=== PATIENT | female | born 1975 | race Caucasian/White ===

== ENCOUNTER 2022-04-05 18:46 | Emergency (ER) | payer OTHER, SELFPAY ==
--- NOTE | ~2022-04-05 | CT_ITS ---
EXAMINATION: CTA chest PE protocol DATE: 04/06/2022 02:35 INDICATION: Shortness of breath. Tachycardia. Recent COVID. Positive d-dimer. TECHNIQUE: Computed tomography (CT) pulmonary angiogram of the chest was performed with 100 mL Omnipa que-350 intravenous contrast. Additional 3D reconstructions utilizing coronal maximum intensity proje ction (MIP) were performed. Automated exposure control and iterative reconstruction technique were em ployed. The dose-length product was 249.28 mGy-cm. COMPARISON: None FINDINGS: Excellent contrast opacification of the pulmonary arteries. There is mild streak artifact from dense contrast in the superior vena cava and right atrium. Mild scattered respiratory motion artifact which does not significantly limit evaluation. No pulmonary embolism. No pneumonia, pulmonary edema, pleur al effusion or pneumothorax. 5 x 7 mm right middle lobe nodule. There are few scattered bilateral sma ll calcified pulmonary nodules consistent with old granulomatous disease. Heart size is normal. No pe ricardial or pleural effusion. No pathologically enlarged thoracic lymphadenopathy. Mild thoracic spo ndylosis. Chronic mild anterior wedging at T8. IMPRESSION: 1. No pulmonary embolism or other acute cardiopulmonary disease. 2. 6 mm right middle lobe nodule for which 6-12 month follow-up low-dose noncontrast chest CT would b e recommended. Reviewed, dictated and finalized at location [facility] IMPRESSION: 1. No pulmonary embolism or other acute cardiopulmonary disease. 2. 6 mm right middle lobe nodule for which 6-12 month follow-up low-dose noncon trast chest CT would be recommended.
--- NOTE | ~2022-04-05 | XR_ITS ---
EXAMINATION: XR chest 2V DATE: 04/05/2022 21:06 INDICATION: Cough. Chest tightness. TECHNIQUE: PA and lateral views of the chest were obtained. COMPARISON: None FINDINGS: The lungs are clear with no focal airspace opacities, pulmonary edema, pleural effusion or pneumothor ax. The cardiomediastinal silhouette is normal. Mild thoracic spondylosis with mild anterior wedging of a couple mid thoracic vertebral bodies. IMPRESSION: 1. No acute cardiopulmonary disease. Reviewed, dictated and finalized at location [facility]. [facility]
[2022-04-05 19:00] VITALS: BP 138/81; PULSE 97; RESP 17; TEMP 37.1; O2SAT 98
[2022-04-05 21:29] LABS: Influenza A QL RT-PCR Negative (Negative); Influenza B QL RT-PCR Negative (Negative); RSV RNA, RT-PCR Negative (Negative); SARS-CoV-2 RNA PCR Negative
[2022-04-06 00:04] VITALS: PULSE 118; RESP 29; O2SAT 95
[2022-04-06 00:05] VITALS: BP 131/87; PULSE 100; RESP 21; O2SAT 94
--- NOTE | 2022-04-06 00:13 | ED.URI ---
HPI - URI/Sore Throat General Stated Complaint: SOB Time Seen by Provider: 04/05/22 23:51 Source: patient Mode of arrival: ambulatory Limitations: no limitations History of Present Illness HPI Narrative: Patient is a 46-year-old female who presents the ED with report of shortness of breath. Patient reports she was diagnosed with COVID-19 2 weeks ago. She had 1 day of cough and fever but otherwise felt fine. Yesterday she developed some upper respiratory symptoms, cough, congestion, runny nose, sneezing. Today she developed shortness of breath and wheezing. She has had difficulty catching her breath. Patient has history of asthma as a child, no issues as an adult. She denies any fevers, chest pain, nausea, vomiting, pleuritic pain. Related Data Allergies Allergy/AdvReac Type Severity Reaction Status Date / Time codeine Allergy Rash Verified 04/06/22 00:33 morphine Allergy Rash Verified 04/06/22 00:33 tramadol Allergy Rash Verified 04/06/22 00:33 Review of Systems Review of Systems: CONSTITUTIONAL: Denies fever, chills, or sweats. ENT: Reports rhinorrhea, congestion, sneezing. CARDIOVASCULAR: Denies chest pain. RESPIRATORY: Reports cough, wheezing, dyspnea. Denies pleuritic pain. GASTROINTESTINAL: Denies abdominal pain, nausea, vomiting, or diarrhea. MUSCULOSKELETAL: Denies back pain, joint pain, or myalgia. NEUROLOGIC: Denies headache, numbness, or weakness. All systems reviewed & are unremarkable except as noted in HPI and below PMFSH Past Medical History Medical History (Updated 04/06/22 @ 03:59 by Dalia Montelongo PA-C) Systemic lupus erythematosus Surgical History Surgical History (Updated 04/06/22 @ 00:20 by Dalia Montelongo PA-C) History of appendectomy History of section History of hysterectomy Social History Social History (Updated 04/06/22 @ 00:20 by Dalia Montelongo PA-C) Smoking status: Never smoker Exam Narrative: GENERAL: Well appearing, obese, non-toxic, in mild acute distress. HEAD: Normocephalic, atraumatic. NECK: Supple. No adenopathy, no masses. RESPIRATORY: Airway patent, respirations mildly tachypneic. Diffuse expiratory wheezing in bilateral lung lockhart. No focal lung sounds. Audible wheezing. CARDIOVASCULAR: Tachycardic with regular rhythm without murmurs, rubs, or gallops. Radial pulses 2+ and equal bilaterally. ABDOMINAL: Soft, nontender, nondistended, no hepatosplenomegaly. Normoactive BS. MUSCULOSKELETAL: Moves all extremities. Strength/ROM intact without gross deformities. SKIN: Warm, dry, normal color. No rashes. NEURO: A&O X3. Speech clear. Cranial nerves II-XII grossly intact. Steady gait. No ataxic movements. PSYCHIATRIC: Appropriate mood and affect. Normal interaction. Course Vital Signs Vital signs: Vital Signs Temperature 98.8 F 04/05/22 19:00 Pulse Rate 97 04/05/22 19:00 Respiratory Rate 17 04/05/22 19:00 Blood Pressure 138/81 04/05/22 19:00 Pulse Oximetry 98 04/05/22 19:00 Oxygen Delivery Room Air 04/05/22 19:00 Temperature 98.8 F 04/05/22 19:00 Pulse Rate 96 04/06/22 00:36 Respiratory Rate 24 H 04/06/22 00:36 Blood Pressure 130/87 04/06/22 00:15 Pulse Oximetry 96 04/06/22 00:16 Oxygen Delivery Room Air 04/06/22 00:19 MDM - URI/Sore Throat MDM Narrative Medical decision making narrative: Patient presented to ED with 2-day history of URI symptoms, SOB. Patient tachycardic and tachypneic with audible wheezing upon my evaluation. Vitals otherwise stable. Afebrile. Oxygenation 96-99% on room air. EKG with nonspecific ST changes, no ST elevation. Troponin negative. Patient denying CP. D-dimer mildly elevated. Chest x-ray without acute findings, no focal consolidation. CTA obtained and negative for PE. Did show small lung nodule, which I made patient aware of will need further outpatient imaging in the future. Influenza, RSV, COVID-negative. Patient given steroids and hour-long nebuli
[2022-04-06 00:15] VITALS: BP 130/87; PULSE 109; RESP 24; O2SAT 95
[2022-04-06 00:16] VITALS: PULSE 108; RESP 25; O2SAT 96
--- NOTE | 2022-04-06 00:19 | ECG_ITS ---
Measurements Intervals [place] Rate: 113 P: 66 NV: 154 QRS: -16 QRSD: 73 T: 27 QT: 324 QTc: 445 Interpretive Statements SINUS TACHYCARDIA MINIMAL ST DEPRESSION [0.025+ mV ST DEPRESSION] ABNORMAL ECG Electronically Signed On 04-06-2022 10:28:16 [employer] by George Guerra M.D.
[2022-04-06] MEDS: SODIUM CHLORIDE 0.9% IV 1,000 ML 999 ML IV CONT ×2 (00:34→03:29)
[2022-04-06] MEDS: methylPREDNISolone SOD SUCC 125 MG VIAL IV PUSH (00:34)
[2022-04-06] MEDS: IPRATROPIUM BR 0.02% INH SOLN 0.5 MG/2.5 ML VIAL 1.5 MG INHALATION (00:35)
[2022-04-06 00:36] VITALS: PULSE 96; RESP 24
[2022-04-06 01:22] LABS: Troponin I < 0.012 ng/mL (0.000-0.034)
[2022-04-06 01:28] LABS: D Dimer 0.77 ug/mL (<0.48)
[2022-04-06] MEDS: IPRATROPIUM BR 0.02% INH SOLN 0.5 MG/2.5 ML VIAL (01:37)
[2022-04-06 02:00] LABS: Basophils Absolute Auto 0.1 K/mm3 (0.0-0.1); Basophils Percent Auto 0.6 % (0.2-1.2); Eosinophils Absolute Auto 0.6 K/mm3 (0-0.3); Eosinophils Percent Auto 5.8 % (0-4.4); Hematocrit 39.3 % (37.0-47.0); Immature Granulocyte Absolute 0.04 K/mm3 (0.00-0.031); Immature Granulocyte Percent A 0.4 % (0-0.5); Lymphocytes Absolute Auto 1.34 K/mm3 (0.9-3.2); Mean Corpuscular HGB Conc 33.1 g/dl (32-36); Mean Corpuscular Hemoglobin 29.7 pg (26-34); Mean Corpuscular Volume 89.7 fl (80-100); Mean Platelet Volume 10.6 fl (7.4-10.4); Monocytes Absolute Auto 0.8 K/mm3 (0.1-0.6); Neutrophils Absolute Auto 7.4 K/mm3 (1.3-6.7); Neutrophils Percent Auto 72.2 % (45.5-73.1); Platelet Count Result 276 k/mm3 (150-375); Red Blood Count 4.38 M/mm3 (4.2-5.4); Red Cell Distribution Width 12.6 % (11.5-14.5); White Blood Count 10.3 K/mm3 (4.5-10.0)
[2022-04-06 02:05] LABS: INR 1.2; Partial Thromboplastin Time 27.7 SECONDS (22.3-36.8); Prothrombin Time 14.2 Seconds (11.1-14.7)
[2022-04-06 02:10] LABS: Alanine Aminotransferase 21 U/L (6-35); Albumin Level 4.7 g/dL (3.5-5.1); Alkaline Phosphatase 106 U/L (38-126); Anion Gap 10 mmol/L (8-16); Aspartate Amino Transferase 28 U/L (14-36); Bilirubin,Total 0.5 mg/dL (0.2-1.3); Blood Urea Nitrogen 13 mg/dL (7-17); Calcium 9.3 mg/dL (8.4-10.2); Carbon Dioxide 22 mmol/L (22-30); Chloride 107 mmol/L (98-107); Estimated CRCL calculation 64 ml/min; Estimated Glomerular Filt Rate > 60; Glucose 108 mg/dL (65-110); Potassium 3.9 mmol/L (3.4-5.0); Sodium 139 mmol/L (137-145)
[2022-04-06 04:59] VITALS: BP 118/72; PULSE 105; RESP 20; TEMP 37.2; O2SAT 97
== END 2022-04-06 04:30 | disposition home or self-care (01) ==
PROVIDERS: Emergency Medicine; Emergency Provider Physician Assistant
DX: J06.9 Acute upper respiratory infection, unspecified (principal); R06.00 Dyspnea, unspecified; R91.1 Solitary pulmonary nodule; Z20.822 Contact with and (suspected) exposure to COVID-19
CPT/HCPCS: 36415; 71046; 71275; 80053; 84484; 85025; 85380; 85610; 85730; 87637; 93005; 94640; 96361; 96374; 99284; J2930; J7030; Q9967